=== PATIENT | male | born 1960 | race Caucasian/White ===

== ENCOUNTER 2021-05-06 18:09 | Emergency (ER) | payer OTHER, SELFPAY ==
--- NOTE | ~2021-05-06 | XR_ITS ---
EXAMINATION: XR ANKLE, RIGHT CLINICAL INFORMATION: Pain after twisting ankle COMPARISON: 05/22/2018 TECHNIQUE: AP, lateral, and mortise views of the right ankle. FINDINGS: Significant soft tissue swelling is seen about the ankle more so laterally. Underlying bony structures are intact with no acute fracture or dislocation seen. Ankle mortise does not appear to be abnormally widened or irregular. Calcaneal heel spurs seen at the attachment point of the plantar aponeurosis. XR/XR ankle RT min 3V IMPRESSION: Soft tissue swelling but no underlying acute fracture or dislocation.
[2021-05-06 19:12] VITALS: BP 146/78; PULSE 98; RESP 16; TEMP 36.7; O2SAT 96; BMI 30.4
--- NOTE | 2021-05-06 20:54 | ED.LOWEXIN ---
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 He had immediate pain but was able to complete his route. Once he got home from work and took off his shoes he noticed his ankle was very swollen and it became more painful to walk on. He denies any weakness, numbness. No other injuries. complaint: ankle injury Onset (ago): hour(s) Type of Injury: eversion Place: work and street/outdoors Severity: moderate Relieving factors: nothing Exacerbating factors: weight bearing, movement and palpation Context: walking Associated symptoms: swelling and able to partially bear weight Other symptoms: none Related Data Allergies Allergy/AdvReac Type Severity Reaction Status Date / Time No Known Allergies Allergy Unverified 01/19/20 16:13 [No Known Allergies*] Review of Systems Review of Systems: Constitutional: No Fever, No Chills Musculoskeletal: + joint pain, No Myalgias Skin: No Skin Lesions, No rash Neuro: No Weakness, No Numbness Heme/Lymph: + Bruising PMFSH Past Medical History Medical History (Updated 05/06/21 @ 21:19 by WILFRIDO Henao) No known health problems Social History Social History Advance Directives: No Physical Exam Vital Signs: Vital Signs: Last Vital Signs Temp 98.0 F 05/06/21 19:12 Pulse 98 05/06/21 19:12 Resp 16 05/06/21 19:12 BP 146/78 H 05/06/21 19:12 Pulse Ox 96 05/06/21 19:12 BMI result Body Mass Index 30.4 Appearance: Alert. Oriented X3. No acute distress. HEENT: normal inspection CVS: Normal heart rate and rhythm. Pulses normal. Respiratory: No respiratory distress. Skin: Skin warm and dry. Normal skin color. Normal skin turgor. No rashes. Extremities: Right ankle with moderate to severe swelling around the lateral malleolus. No point tenderness. Small amount of bruising starting to form. Normal range of motion. Neurovascularly intact distally. Neuro: Oriented X 3. 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 On exam there is ecchymosis and swelling to lateral aspect of his ankle concerning for possible fracture. At x-ray pending Reevaluation(s) Reevaluation #1: x-ray negative for fracutre. placed in PATRICIA wrap for compression and support. declined need for crutches or pain meds. stable for d/c home with supportive care Discharge Plan Discharge Clinical Impression: Ankle sprain and strain Patient Disposition: Home, Self-Care Instructions: Ankle Sprain (ED) Additional Instructions: Your x-ray today was normal. Rest your ankle and elevate your foot when possible. Recommend PATRICIA wrap for support and compression. Use ice several times per day for the next 48 hours. You may bear weight as tolerated. If pain is too severe, use crutches until better. Take Motrin and/or Tylenol as needed for pain. Motrin also helps improve swelling. Follow up with your doctor as needed. Referrals: [facility] [Provider Group] - 2 days Stand Alone Forms: Work/School Release
== END 2021-05-06 21:40 | disposition home or self-care (01) ==
PROVIDERS: Emergency Provider Internal Medicine; PCP Internal Medicine
DX: S93.401A Sprain of unspecified ligament of right ankle, initial encounter (principal); S96.911A Strain of unspecified muscle and tendon at ankle and foot level, right foot, initial encounter; X50.1XXA Overexertion from prolonged static or awkward postures, initial encounter; Y93.01 Activity, walking, marching and hiking; Y92.242 Post office as the place of occurrence of the external cause; Y99.0 Civilian activity done for income or pay
CPT/HCPCS: 73610; 99283

== ENCOUNTER → 2023-09-25 14:32 | Outpatient (REF) | payer BC, MEDICARE, SELFPAY ==
--- NOTE | 2023-09-25 14:47 | ECG_ITS ---
Test Reason : HYPERCHOLESTEROLEMIA Blood Pressure : / mmHG Vent. Rate : 101 BPM Atrial Rate : 101 BPM P-R Int : 160 ms QRS Dur : 108 ms QT Int : 360 ms P-R-T Axes : 061 066 042 degrees QTc Int : 466 ms Sinus tachycardia Otherwise normal ECG No previous ECGs available Referred By: Jose Mcarthur Electronically Signed By:Shubham Nogueira
== END ==
LOC: HO.CARD 14:32
PROVIDERS: PCP Internal Medicine; Visit Provider Internal Medicine
DX: E78.00 Pure hypercholesterolemia, unspecified (principal); B35.1 Tinea unguium
CPT/HCPCS: 93005

== ENCOUNTER → 2023-09-25 14:47 | Outpatient (BNV) | payer BC, MEDICARE, SELFPAY | PROVIDERS: PCP Internal Medicine; Visit Provider Internal Medicine Cardiovascular Disease | DX: R00.0 Tachycardia, unspecified (principal); E78.00 Pure hypercholesterolemia, unspecified | CPT/HCPCS: 93010 ==

== ENCOUNTER 2023-09-26 06:32 | Outpatient (REF) | payer BC, MEDICARE, SELFPAY ==
[2023-09-26 11:06] LABS: MANUAL DIFF FLAG NO
[2023-09-26 11:15] LABS: Basophils Percent Auto 0.7 % (0-2); Eosinophils Absolute Auto 0.3 X10*3/uL (0.0-0.4); Eosinophils Percent Auto 4.2 % (0-4); Hematocrit 45.4 % (42.0-52.0); Imm Gran Abs Auto 0.01 X10*3/uL (0.00-0.03); Imm Gran Pct Auto 0.2 % (0.0-0.4); Lymphocytes Absolute Auto 2.3 X10*3/uL (1.2-4.9); Lymphocytes Percent Auto 38.4 % (20-40); Mean Corpuscular Hemoglobin 30.2 pg (27.0-33.0); Mean Corpuscular Volume 91.5 fL (80.0-98.0); Mean Platelet Volume 9.3 fL (9.4-12.4); Monocytes Absolute Auto 0.6 X10*3/uL (0.1-1.2); Monocytes Percent Auto 10.7 % (2-11); Neutrophils Absolute Auto 2.7 x10*3/uL (2.0-8.3); Neutrophils Percent Auto 45.8 % (45-73); Platelet Count 277 X10*3/uL (160-400); Red Blood Count 4.96 X10*6/uL (4.60-5.80); Red Cell Distribution Width 14.5 % (11.0-16.0); White Blood Count 5.9 X10*3/uL (4.8-10.8)
[2023-09-26 11:47] LABS: Alanine Aminotransferase 27 U/L (0-40); Albumin Level 4.5 g/dL (3.5-5.0); Alkaline Phosphatase 59 U/L (39-117); Anion Gap 14 (12-20); Aspartate Amino Transferase 20 U/L (5-37); Bilirubin Total 0.7 mg/dL (0.0-1.0); Blood Urea Nitrogen 21 mg/dL (9-16); Calcium 9.7 mg/dL (8.4-10.2); Carbon Dioxide 23 mmol/L (22-29); Chloride 107 mmol/L (96-108); Cholesterol 221 mg/dL (<200); Estimated Glomerular Filt Rate > 60; Glucose Fasting 111 mg/dL (60-99); HDL Cholesterol 70 mg/dL (>40); LDL Cholesterol Calculated 138 mg/dL (<100); Potassium 4.2 mmol/L (3.3-5.1); Sodium 140 mmol/L (135-145); Total Protein 7.8 g/dL (6.5-8.0); Triglycerides 68 mg/dL (<150)
[2023-09-26 12:10] LABS: Thyroid Stimulating Hormone 3.53 uIU/mL (0.32-4.0)
== END 2023-09-26 06:33 | disposition home or self-care (01) ==
LOC: HO.HMGCLDS 06:32
PROVIDERS: PCP Internal Medicine; Visit Provider Internal Medicine
DX: E78.00 Pure hypercholesterolemia, unspecified (principal); T85.22XD Displacement of intraocular lens, subsequent encounter; F40.243 Fear of flying; B35.1 Tinea unguium
CPT/HCPCS: 36415; 80053; 80061; 84443; 85025

== ENCOUNTER 2024-02-04 08:44 | Outpatient (AMB) | payer BC, MEDICARE, SELFPAY ==
--- NOTE | 2024-02-04 08:49 | A.OFFVIS_ITS ---
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 Patient reports his pain has been present for about 2.5 months. His pain presents with certain activities such as stair use. He mentions that he now has right hip pain that could possibly be secondary from his knee pain. He uses a knee sleeve with activity. Denies injury. He has some numbness above his knee on the lateral side. No other tx. 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 He has not had any knee injury. He states he has pain in his right knee that comes with certain activities such as going upstairs and walking long distances. He also reports catching, locking as well as sharp pain in his knee with twisting movements. He uses a knee sleeve with activities. He also experiences some numbness above his knee on the lateral side. He has not had any treatment in the past. He also mentions he now has right hip pain that he believes to be secondary from his knee pain. 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 Review of Systems Const All systems reviewed & are unremarkable except as noted in HPI and below Physical Exam Vital Signs: BMI result Body Mass Index 30.4 Const General: cooperative, healthy appearing, comfortable, no acute distress, well developed and alert Orientation/consciousness: patient oriented x3 HEENT Head: Yes normal to inspection, Yes normocephalic and Yes atraumatic Eyes General: appearance normal, both eyes and all related structures Resp Effort & Inspection: normal respiratory effort and able to speak in complete sentences Cardio Rate: regular rate Peripheral pulses: Peripheral pulses 2+ throughout GI Palpation (GI): Soft to palpation Skin Lesions: no lesions Rashes: no rashes Neuro General: patient oriented x3 Extrem Other: Right knee: Skin intact, no erythema or joint effusion. No direct tenderness along the medial and lateral joint line. Full ROM with crepitus. Negative Shadi?s. No ligamentous laxity. NVI. ? Results Reviewed Results Reviewed: Xrays were obtained in the office today and personally reviewed by me of the right knee are negative for acute fractures. He does have mild medial compartment oa. Assessment & Plan Assessment & Plan (1) Osteoarthritis of right knee: Code(s): M17.11 - Unilateral primary osteoarthritis, right knee Category: Medical Plan We discussed options today which include physical therapy, cortisone injection and limitation in activities. He will defer on formal physical therapy this time and was given home exercises program to work on. I did recommend taking anti- inflammatories as needed for flareups. He was given a work note to limit the n umber of hours and also limit his prolonged standing. He will avoid any type of deep bending, kneeling, twisting, pivoting, or squatting. He was also fit for a Janumet knee brace in the office today. If symptoms persist or worsen, patient will contact the office to discuss steroid injection, otherwise follow-up as needed. Orders: Orders XR knee LT 1V Today M25.562 - Pain in left knee XR knee RT 3V Today M17.11 - Unilateral primary osteoarthritis, right knee Patient Instructions: Scribed for Eren Feliciano PA-C, by Win Shen medical affairs specialist, on 02/04/2024 at 9:15 AM EST.? I, Eren Feliciano PA-C, have personally reviewed and agree with the information entered by the scribe. Coding Level of Care Code New Pt Level 3 (39338) Complex EM visit Add On G2211 Diagnoses Osteoarthritis of right knee M17.11
[2024-02-04 08:59] VITALS: BMI 30.4
== END 2024-02-04 09:47 | disposition home or self-care (01) ==
PROVIDERS: PCP Internal Medicine; Visit Provider Physician Assistant
DX: M17.11 Unilateral primary osteoarthritis, right knee (principal)
CPT/HCPCS: 99203

== ENCOUNTER 2024-02-04 12:34 | Outpatient (REF) | payer BC, MEDICARE, SELFPAY | END 2024-02-04 12:35 | disposition home or self-care (01) | LOC: HO.HOSX 12:34 | PROVIDERS: Visit Provider Physician Assistant | DX: M25.562 Pain in left knee (principal); M17.11 Unilateral primary osteoarthritis, right knee | CPT/HCPCS: 73560; 73562 ==

== ENCOUNTER 2024-06-04 08:34 | Emergency (ER) | payer OTHER, BC, MEDICARE, SELFPAY ==
--- NOTE | ~2024-06-04 | XR_ITS ---
CLINICAL HISTORY: fall 3 view right shoulder Comparison: None Findings: Normal congruency of the glenohumeral joint. Spurring inferior glenoid. AC joint arthrosis no undersurface spurring. No fractures or bony erosions. Greater tuberosity cysts. Normal bone mineralization and soft tissues. No radiopaque foreign body. Normal visualized right chest. Impression: 1. Greater tuberosity cysts a sequela of rotator cuff tendinopathy. AC joint arthrosis with no undersurface spurring. 2. Minimal spurring along the inferior glenoid. 3. No acute fractures or malalignment This document has been electronically signed by: Guillermo Zelaya MD on 06/04/2024 09:07:12
[2024-06-04 08:38] VITALS: BP 146/78; PULSE 79; RESP 19; TEMP 36.6; O2SAT 98; BMI 30.4
--- NOTE | 2024-06-04 10:56 | ED.FALL ---
HPI - Fall General Chief Complaint: Fall Stated Complaint: fall at work Time Seen by Provider: 06/04/24 10:54 Source: patient and RN notes reviewed Mode of arrival: ambulatory Limitations: no limitations History of Present Illness ED Provider: Lottie Mahoney PA-C [facility] Narrative: This is a 64-year-old male who presents emergency department with concerns for right shoulder pain status post slip and fall at work yesterday. Patient reports that he slipped and fell on ice yesterday and landed onto his right shoulder. Denies hitting his head or LOC. He is not on anticoagulation. He reports that he was able to get himself off the ground afterwards, did not initially have any pain. He states that slowly throughout the day he had worsening pain in his right shoulder. He also reports slight tenderness in his right buttocks. Patient reports that he awoke this morning, and has had worsening pain in his right shoulder. No known injury to his right shoulder in the past. He is right-hand dominant. No other complaints or concerns at this time. MD complaint: fall Place fall occurred: work Loss of consciousness: none Prolonged down time: no Symptoms prior to fall: none Context: tripped/slipped Location of injury - extremities: right: shoulder Severity: moderate Associated symptoms (after fall): denies Related Data Home Medications ?Medication ?Instructions ?Recorded ?Confirmed No Known Home Meds 02/04/24 02/04/24 Allergies Allergy/AdvReac Type Severity Reaction Status Date / Time No Known Allergies Allergy Verified 06/04/24 08:39 [No Known Allergies*] Review of Systems Review of Systems: Yes all other systems are reviewed and are negative Constitutional: Constitutional: Reports as per [facility] Past Medical History Medical History (Updated 06/04/24 @ 11:37 by WILFRIDO Gamez) No known health problems Surgical History (Updated 02/04/24 @ 09:00 by COURTNEY Titus) Hx of non-cataract eye surgery Social History Social History (Updated 02/04/24 @ 09:00 by COURTNEY Titus) Patient Tobacco Use Status: Never used Tobacco Advance Directives: No Advance Directives Information Provided: No Do you have a plan to hurt others: No Plan Current occupational status: employed 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 Physical Exam Vital Signs: Vital Signs: Last Vital Signs Temp 98 F 06/04/24 08:38 Pulse 79 06/04/24 08:38 Resp 19 06/04/24 08:38 BP 146/78 H 06/04/24 08:38 Pulse Ox 98 06/04/24 08:38 O2 Del Method Room Air 06/04/24 08:38 BMI result Body Mass Index 30.4 Const: General: cooperative, comfortable and no acute distress Orientation/consciousness: patient oriented x3 Limitations: no limitations HEENT: Head: Yes normal to inspection, Yes normocephalic and Yes atraumatic Ears: hearing grossly normal bilaterally General nose exam: Normal external nose present Face and sinus: Yes normal facial exam Mouth: Normal oral and palatal mucosa present, oropharynx normal and moist mucous membranes Throat: Yes posterior oropharynx normal Eyes: Other: Right pupillary defect noted, reactive, patient had extensive surgery on right eye in the past. Reports that this is chronic for him. General: appearance normal, both eyes and all related structures Eyelids: Yes eyelids normal Conjunctivae: conjunctivae normal Sclerae: sclerae normal Pupils: Equal, round and reactive pupils present EOM: EOMs intact bilaterally Neck: Neck: Yes normal visual inspection, Yes full ROM and Yes no lymphadenopathy Lymphatic: no lymphadenopathy noted Chest: Chest palpation & inspection: normal inspection of the chest Resp: Effort & Inspection: normal respiratory effort and able to speak in complete sentences Auscultation: clear to auscultation bilaterally, no crackles, no rales, no rhonchi and no wheezes Cardio: Rate: regular rate Rhythm: regular rhythm Heart sounds: S1 normal heart sound present and S2 normal heart sound present GI: Inspection: Yes normal to inspection Back/Spine/Pelvis: Other: Right buttock with mild tenderness palpation, no overlying skin changes or warmth, no palpable bony defect noted. Skin: General skin exam: no rashes or lesions noted Trauma: no lacerations or abrasions Wounds: no wounds Neuro: General: patient oriented x3 and moves all extremities Cranial nerves: Yes Equal, round and reactive pupils present Extrem: Other: Patient has tenderness palpation along the right AC joint, positive drop-arm test, unable to forward flex, and abduct shoulder greater than 10?. Strong radial pulse. Capillary refill less than 2 seconds. Sensation intact. 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 General: Yes normal to inspection Right upper extremity: normal to inspection Left upper extremity: normal to inspection Right lower extremity: normal to inspection Left lower extremity: normal to inspection Medical Decision Making Medical Decision Making MDM Narrative: This is a 64-year-old male who presents emergency department with complaints of right shoulder pain status post mechanical fall which occurred yesterday. On arrival, patient mildly hypertensive at 146/78, all other vital signs within normal limits. He is not on anticoagulation, denies any head strike. Reporting right shoulder pain, and right buttock pain. Patient does have mild tenderness palpation along the right buttocks, no palpable bony deficits noted on examination. Patient is ambulatory. I discussed with patient we can get a x-ray to rule out any bony abnormalities however patient declines at this time, will follow-up with PCP if pain persists. Right shoulder with no obvious bony deformity or swelling. Decreased range of motion secondary to pain and weakness. Physical exam concerning for possible rotator cuff injury. Discussed findings with patient. He will follow-up with the orthopedic team on Thursday. Discussed strict return precautions. Differential Diagnosis Differential Diagnoses: The differential diagnosis associated with the presentation includes Sprain, strain, contusion, fracture, dislocation, AC joint separation. Radiology Impression Discussion of test interpretation with radiology: I have reviewed the radiologist's reading. Radiologist Impression: CLINICAL HISTORY: fall 3 view right shoulder Comparison: None Findings: Normal congruency of the glenohumeral joint. Spurring inferior glenoid. AC joint arthrosis no undersurface spurring. No fractures or bony erosions. Greater tuberosity cysts. Normal bone mineralization and soft tissues. No radiopaque foreign body. Normal visualized right chest. Impression: 1. Greater tuberosity cysts a sequela of rotator cuff tendinopathy. AC joint arthrosis with no undersurface spurring. 2. Minimal spurring along the inferior glenoid. 3. No acute fractures or malalignment This document has been electronically signed by: Guillermo Zelaya MD on 06/04/2024 09:07:12 Dictated By: Guillermo Zelaya MD Discharge Plan Discharge Clinical Impression: Acute shoulder pain, Tendinopathy of right rotator cuff Patient Disposition: Home, Self-Care Instructions: Arthralgia (ED), Shoulder Pain (ED) Additional Instructions: You were seen in the emergency department after a slip and fall which occurred yesterday. Your right shoulder shows evidence of arthritis on your x-ray. Your physical exam is concerning for rotator cuff injury. Please rest, ice, use sling for comfort, and follow-up with the acls specialist. He is very important that you continue to take your arm out of the sling as you can developed a condition called adhesive capsulitis, also known as frozen shoulder. Gentle range of motion, massage can also help. Take Tylenol as needed for pain. If any new or worsening symptoms occur including but not limited to severe headache, dizziness, chest pain, shortness of breath, please seek emergent care. Prescriptions: No Action No Known Home Meds Referrals: [facility] [place] Group] Stand Alone Forms: Work/School Release Print Language: Slovenian
[2024-06-04 12:03] VITALS: BP 146/78; PULSE 79; RESP 19; TEMP 36.6; O2SAT 98
== END 2024-06-04 12:03 | disposition home or self-care (01) ==
PROVIDERS: Emergency Provider Emergency Medicine; PCP Internal Medicine
DX: M25.511 Pain in right shoulder (principal); M67.811 Other specified disorders of synovium, right shoulder
CPT/HCPCS: 73030; 99282; 99283

== ENCOUNTER → 2024-06-04 08:50 | Outpatient (BNV) | payer BC, MEDICARE, SELFPAY | PROVIDERS: PCP Internal Medicine; Visit Provider Radiology Diagnostic Radiology | DX: M85.611 Other cyst of bone, right shoulder (principal); M19.011 Primary osteoarthritis, right shoulder | CPT/HCPCS: 73030 ==

== ENCOUNTER 2024-06-06 15:11 | Outpatient (AMB) | payer OTHER, MEDICARE, BC, SELFPAY ==
--- NOTE | 2024-06-06 15:50 | A.OFFPC_ITS ---
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 No known health problems Surgical History Hx of non-cataract eye surgery Social History Patient Tobacco Use Status: Never used Tobacco Current occupational status: employed 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 Physical exam (Primary Care) Vital Signs: Last Vital Signs Pulse 86 06/06/24 15:51 Resp 18 06/06/24 15:51 BP 135/86 06/06/24 15:51 Pulse Ox 95 06/06/24 15:51 Care Plan Goal for BP management: <130/80 at goal today BMI result Body Mass Index 33.3 BMI Assessment/Plan discussion: High Tobacco/Smoking Status: Tobacco use Status Patient Tobacco Use Status Never used Tobacco 06/06/24 15:53 Coding Level of Care Code New Pt Level 4 (28278) Complex EM visit Add On G2211 Diagnoses Work related injury Y99.0 Right shoulder injury S49.91XA Tendinopathy of right rotator cuff M67.911 Arthrosis of right acromioclavicular joint M19.011 Assessment & Plan Assessment & Plan (1) Work related injury: Code(s): Y99.0 - Civilian activity done for income or pay Category: Medical Plan: Patient given work note until 06/08/2024 with instructions return on limited duty with no usage of right arm until cleared by Orthopedics. (2) Right shoulder injury: Code(s): S49.91XA - Unspecified injury of right shoulder and upper arm, initial encounter Category: Medical Plan: Patient to continue sling in place. Patient referred to orthopedics by emergency department. Instructed patient to call Orthopedics and make a follow- up appointment as soon as possible for further evaluation management of work- related injury right shoulder pain. (3) Tendinopathy of right rotator cuff: Code(s): M67.911 - Unspecified disorder of synovium and tendon, right shoulder Category: Medical Plan: Patient to follow-up with orthopedics. Continue to use sling. Providing patient with Motrin 800 mg and Flexeril. Will continue to monitor. (4) Arthrosis of right acromioclavicular joint: Code(s): M19.011 - Primary osteoarthritis, right shoulder Category: Medical Plan: Patient to follow-up with orthopedics. Continue to use sling. Providing patient with Motrin 800 mg and Flexeril. Will continue to monitor. Plan Plan - Follow up with speech language specialist for detailed evaluation of the shoulder injury to consider the need for MRI and potential therapeutic interventions. - Continue the use of prescribed analgesics, including ibuprofen, and initiate a muscle relaxant to assist with discomfort management. - Maintain resting measures for the right shoulder and avoid strenuous activities until cleared by orthopedics. - Obtain necessary work restrictions documentation to fulfill occupational requirements. - Schedule blood work including lipid panel and others as ordered to address hyperlipidemia and preventive health measures. - Arrange for an annual physical examination to address comprehensive health maintenance. Orders: Orders Liver Panel 06/06/24 Z. - Encounter for general adult medical examination without abnormal findings Vitamin B12 and Folate 06/06/24 Z. - Encounter for general adult medical examination without abnormal findings Complete Blood Count Auto Diff 06/06/24 Z - Encounter for general adult medical examination without abnormal findings Comprehensive Malcolm. Panel Fast 06/06/24 Z - Encounter for general adult medical examination without abnormal findings Magnesium 06/06/24. - Encounter for general adult medical examination without abnormal findings Lipid Panel 06/06/24 Z. - Encounter for general adult medical examination without abnormal findings Hemoglobin A1c 06/06/24 Z. - Encounter for general adult medical examination without abnormal findings PSA,Total (Free>4and<10) 06/06/24 Z. - Encounter for general adult medical examination without abnormal findings TSH reflex Free T4 06/06/24 Z. - Encounter for general adult medical examination without abnormal findings Vitamin D 25-OH Total 06/06/24 Z00.00 - Encounter for general adult medical examination without abnormal findings Medications: New ibuprofen 800 mg PO Q8H PRN 30 tabs 1RF pain cyclobenzaprine 10 mg PO Q8H 30 tabs 1RF Patient Instructions: Patient Instructions - Avoid using the right arm for lifting or strenuous activities until evaluated by orthopedics. - Apply ice to the shoulder to manage swelling. - Take ibuprofen with food to minimize gastric discomfort. - Contact orthopedics promptly to schedule an appointment, using the provided insurance information. - Plan for blood work fasting for 12 hours before the test. - Follow up for an annual physical examination. - Monitor blood pressure and seek care if there are significant elevations or symptoms like chest pain or shortness of breath. - Report any worsening of shoulder symptoms to the medical office immediately. Scribe Plan - Not visible on output: History of Present Illness The patient is a 64-year-old male presenting with a shoulder injury sustained on June 03 due to a fall on ice while he was at work patient works for [employer]. On this day it was very cold it had just snowed and it was raining therefore there was black ice. The fall resulted in a direct impact on the shoulder. An initial evaluation at the ER included x-rays, which showed no fractures but revealed findings indicative of tendinopathy and some arthritis. The patient reports persistent inability to raise the arm and significant discomfort, interfering with his daily activities. The patient visited the ER on 06/04/24 following the injury, where conservative management was initiated, a sling was placed to the right arm, and he was advised to follow up with orthopedics for further assessment, including a potential MRI. The patient has a past medical history of osteoarthritis in the knee, as well as past consultations with orthopedics for knee conditions. Otherwise he reports he has taken high cholesterol medications in the past although has not taken in quite some time. He denies taking any other medications chronically. Has been taking [id number] Motrin and Tylenol for right shoulder pain with little to no s ymptomatic relief. He has a work note from the ER until Thursday06/08/2024 although patient reports they stated that he can go back on full duty and patient does not feel like he can go back on full duty due to pain to right arm/shoulder. Review of Systems - Musculoskeletal: Reports inability to elevate the right arm. - Neurological: Denies head injury, denies neurological deficits. Physical Exam Appearance: Alert. Oriented X3. No acute distress. Head: Normal external exam. Normocephalic. Atraumatic. Eyes: Pupils are equal, round, and reactive to light. Extraocular movements intact. Conjunctiva and sclera normal. Eyelids normal. Ears: External auditory canal normal. Throat: Pharynx normal. Uvula midline. Moist mucous membranes. Neck: Normal inspection. Neck supple. Full range of motion. No meningeal signs. Cardiovascular: Normal heart rate and rhythm. Respiratory: No respiratory distress. Painless inspiration. Back: Full range of motion noted. Skin: Skin warm and dry. Normal skin color. Normal skin turgor. No rashes/lesions/lacerations noted. Extremities: Right shoulder with limited range of motion due to pain and swelling. Tenderness noted at the AC joint. Patient unable to lift shoulder more than 30 degrees. Unable to perform shoulder flexion, shoulder extension, adduction and abduction. Patient keeps his shoulder and internal rotation. Patient able to perform external rotation although reports pain. Patient unable to perform internal and external horizontal rotation of the right shoulder. Patient has full range of motion of left shoulder. No other tenderness noted. Patient with brace to right knee. Otherwise All other extremities exhibit normal range of motion. Neuro: Oriented X 3. No motor deficit. No sensory deficit. Reflexes normal. Normal steady gait. Results - Imaging: X-rays of the shoulder show no fracture; findings suggestive of tendinopathy and chronic osteoarthritis. Plan - Follow up with speech language specialist for detailed evaluation of the shoulder injury to consider the need for MRI and potential therapeutic interventions. - Continue the use of prescribed analgesics, including ibuprofen, and initiate a muscle relaxant to assist with discomfort management. - Maintain resting measures for the right shoulder and avoid strenuous activities until cleared by orthopedics. - Obtain necessary work restrictions documentation to fulfill occupational requirements. - Schedule blood work including lipid panel and others as ordered to address hyperlipidemia and preventive health measures. - Arrange for an annual physical examination to address comprehensive health maintenance. Patient was informed and verbally consented to the use of an ambient scribe for clinic note documentation during this visit. Discussion Notes I discussed with the patient the findings from the initial ER evaluation, emphasizing the importance of follow-up with orthopedics to determine the extent of the shoulder injury through potential MRI diagnostics. We addressed the need for appropriate work restrictions given the patient's current functional limitations due to the shoulder tendinopathy. I outlined the potential benefits and risks of continuing analgesia with NSAIDs and the introduction of a muscle relaxant for symptomatic relief. Furthermore, I emphasized the need for close management of his hypertension and hyperlipidemia, recommending routine blood work for monitoring and an annual physical to ensure overall health maintenance. The patient was advised to contact orthopedics with the necessary insurance claims information to expedite scheduling. Patient Instructions - Avoid using the right arm for lifting or strenuous activities until evaluated by orthopedics. - Apply ice to the shoulder to manage swelling. - Take ibuprofen with food to minimize gastric discomfort. - Contact orthopedics promptly to schedule an appointment, using the provided insurance information. - Plan for blood work fasting for 12 hours before the test. - Follow up for an annual physical examination. - Monitor blood pressure and seek care if there are significant elevations or symptoms like chest pain or shortness of breath. - Report any worsening of shoulder symptoms to the medical office immediately.
[2024-06-06 15:51] VITALS: BP 135/86; PULSE 86; RESP 18; O2SAT 95; BMI 33.3
== END 2024-06-06 15:54 | disposition home or self-care (01) ==
PROVIDERS: PCP Internal Medicine; Visit Provider Physician Assistant Medical
DX: S49.91XA Unspecified injury of right shoulder and upper arm, initial encounter (principal); M67.911 Unspecified disorder of synovium and tendon, right shoulder; M19.011 Primary osteoarthritis, right shoulder; Z04.2 Encounter for examination and observation following work accident

== ENCOUNTER → 2024-06-06 15:11 | Outpatient (BNVA) | payer OTHER, BC, MEDICARE, SELFPAY | PROVIDERS: PCP Internal Medicine; Visit Provider Physician Assistant Medical | DX: S49.91XA Unspecified injury of right shoulder and upper arm, initial encounter (principal); M67.911 Unspecified disorder of synovium and tendon, right shoulder; M19.011 Primary osteoarthritis, right shoulder; X58.XXXA Exposure to other specified factors, initial encounter; Y93.9 Activity, unspecified; Y92.9 Unspecified place or not applicable; Y99.0 Civilian activity done for income or pay | CPT/HCPCS: 99202 ==